=== PATIENT | male | born 1970 | race Caucasian/White ===

== ENCOUNTER 2021-08-27 07:21 | Emergency (ER) | payer SELFPAY ==
[2021-08-27 07:23] VITALS: BP 128/86; PULSE 102; RESP 18; TEMP 36.5; O2SAT 96; BMI 29.0
--- NOTE | 2021-08-27 07:36 | EDS_ITS ---
HPI History of Present Illness Chief Complaint: Wound Detail of Chief Complaint: Rash to feet that started 3 to 4 days ago Informant: patient Narrative Narrative: Patient presents to the emergency department with complaint of an itchy rash that started 3 or 4 days ago. Patient noticed these blisters that he then would pop with a razor blade. The wounds were then scab over. Patient denies any fevers. This morning he felt a little bit hot or sweaty. Patient denies any new soaps or detergents or other allergens. He denies any contact exposures to chemicals. The rash is not present anywhere else on his body. Patient denies recent illness. Patient denies new medications. PFSH PFSH Medical History no medical history Home Medications cephalexin 500 mg capsule 500 mg PO Q6 #40 CAPSULES 08/27/21 [Rx Last Taken Unknown] prednisone 20 mg tablet 20 mg PO BID #14 tabs 08/27/21 [Rx Last Taken Unknown] Allergy/AdvReac Type Severity Reaction Status Date / Time No Known Allergies Allergy Verified 08/27/21 07:23 Family History no significant family his Surgical History no surgical history Social History Smoking Status: Current every day smoker tobacco type: cigarettes ROS ROS ED Review of Systems ROS Unobtainable: other Constitutional Constitutional ED: Reports lethargy; Denies chills, fever(s), sweats or weight loss Eyes Eyes: Denies blurry vision, change in vision or diplopia ENT ENT ED: Denies rhinorrhea or sore throat Cardiovascular Cardiovascular: Denies chest pain, orthopnea or racing heartbeat Respiratory/Chest Respiratory/Chest: Reports dyspnea and dyspnea on exertion; Denies cough, orthopnea or sputum Gastrointestinal Gastrointestinal: Denies abdominal pain, diarrhea, nausea or vomiting Genitourinary Genitourinary ED: Denies dysuria, hematuria or urinary frequency Musculoskeletal Musculoskeletal: Denies arthralgias, back pain, myalgias or neck pain Integumentary Reports rash; Denies abscess or Abrasions Neurologic Neurologic: Denies headache(s) or weakness Psychiatric Psychiatric: Denies anxiety, depression or suicidal thoughts Endocrine Endocrinology: Denies polydipsia, polyphagia or polyuria Hematologic/Lymphatic Hematologic/Lymphatic: Denies easy bleeding, easy bruising or lymphadenopathy Allergic/Immunologic Allergic/Immunologic ED: Denies mouth swelling, tongue swelling or urticaria EXAM Physical Exam Const Vital Signs: 07/12/22 07:23 Temperature 97.7 F L Temperature Source Temporal Pulse Rate 102 H Respiratory Rate 18 Blood Pressure 128/86 H Blood Pressure Mean 100 Pulse Ox 96 Oxygen Delivery Method Room Air Positive well nourished and well developed General Appearance ED: well developed and NAD HEENT Reports TM's clear and moist mucous membranes normocephalic and atraumatic; Negative for trauma or tenderness Tympanic Membrane ED: Yes TM's clear Eyes PERRL and EOMs intact bilaterally General Eye ED: Negative for pale conjunctiva or scleral icterus Neck no lymphadenopathy, supple and no JVD General: Negative for tenderness Chest Wall inspection of chest normal and palpation of chest normal Chest: Negative for tenderness Resp normal respiratory effort and clear to auscultation bilaterally Effort and Inspection: Negative for respiratory distress or pain with movement Auscultation: Negative for rhonchi, wheezes or diminished lung sounds Cardio regular rate, regular rhythm, S1 normal heart sound, S2 normal heart sound and no murmurs Peripheral Pulses: pulses 2+ throughout GI normal to inspection, nondistended, normoactive bowel sounds, soft to palpation, non-tender, non-distended and no masses Back/Spine no CVA tenderness and no thoracic nor lumbar tenderness Extremity Extremity Narrative: Patient with normal pulses to popliteal, dorsal pedal, and posterior tibial arteries. No rashes noted above the ankle. Patient does have excoriated rash on both feet with some pustules noted sporadically. Different stages of healing of prior pustules/vesicles. General Extremety ED: Negative for edema General Extremity: Negative for edema Neuro oriented x3, CN's II-XII intact bilaterally, no sensory deficits noted and gait normal Sensorium / Orientation: awake, alert, oriented to person, oriented to place and oriented to time Motor Exam: strength 5/5 throughout and strength abnormal Psych mental status grossly normal Skin Skin Narrative: Evaluation of both feet does reveal what appears to be a contact like rash with vesicles and pustules that are in different stages of breaking open and healing. There are some dry areas with scabbing noted involving the toes as well as the tops and bottoms of both feet. MDM MDM MDM Narrative Medical decision making narrative: Inspecting patient's feet he has small areas of vesicles and pustules that ap pear to be a contact type dermatitis with possible secondary infection. Patient will be treated with Keflex as well as prednisone by mouth. He will be given referral to podiatry for follow-up. Patient vies return if fever, worsening pain, increased redness or swelling, or condition should worsen anyway. Discharge Plan Triage Chief Complaint: Wound Other Complaint: Rash ED Provider: Lashay Sprague Dx/Rx/DC Orders Clinical Impression: Contact dermatitis, Cellulitis Instructions: ED Cellulitis, ED Contact Dermatitis Prescriptions: New prednisone 20 mg tablet 20 mg PO BID Qty: 14 0RF cephalexin [cephalexin] 500 MG capsule 500 mg PO Q6 Qty: 40 0RF Primary Care Provider: Care Physician,Trina Primary Referrals: Nathan Nix DPM [STAFF PHYSICIAN] - 3-5 Days NOT,DEFINED [NON-STAFF] - Disposition Disposition: Home, Self Care
[2021-08-27] MEDS: predniSONE 20 MG Tablet 40 MG PO (07:41)
[2021-08-27] MEDS: Cephalexin 250 MG Capsule 500 MG PO (07:41)
== END 2021-08-27 07:59 | disposition home or self-care (01) ==
PROVIDERS: Emergency Provider Emergency Medicine; Visit Provider Emergency Medicine
DX: L25.9 Unspecified contact dermatitis, unspecified cause (principal); F17.210 Nicotine dependence, cigarettes, uncomplicated; L03.90 Cellulitis, unspecified
CPT/HCPCS: 99284

== ENCOUNTER → 2021-12-24 | Outpatient (CLI) | payer SELFPAY ==
--- NOTE | 2021-12-24 08:49 | RAD_ITS ---
STUDY: X-RAY - PELVIS AND BILATERAL HIPS REASON FOR EXAM: Male, 51 years old. HIP PAIN TECHNIQUE: AP view of the pelvis.? 2 views of the right hip, and 2 views of the left hip were obtained. COMPARISON: None. FINDINGS: There is a non-specific bowel gas pattern. There are multiple calcified phleboliths. Findings suggestive of a calcified appendicolith measuring 6.7 mm. Normal bilateral iliac wings, sacroiliac joints and visualized sacrum. Normal bilateral superior and inferior pubic rami. Normal pubic symphysis. Normal bilateral ischial tuberosities. Normal visualized right femoral head. Normal right acetabulum. There is mild articular joint space narrowing of the right hip. Normal visualized left femoral head. Normal left acetabulum. There is mild articular joint space narrowing of the left hip. RAD/Hips B/L min 2 views w/ Pelvis IMPRESSION: Mild degree of joint space narrowing of both hip joints. Findings suggestive of a calcified appendicolith measuring 6.7 mm. Electronically Signed: Robert Ruiz MD at 15:35 EST ,
--- NOTE | 2021-12-24 08:49 | RAD_ITS ---
STUDY: X-RAY - LUMBAR SPINE REASON FOR EXAM: Male, 51 years old. Technologist Notes left hip pain, goes down left leg BACK PAIN TECHNIQUE: XR Spine Lumbar Min 4 Views COMPARISON: None FINDINGS: Normal lumbar lordosis. There is no substantial scoliosis. There is a normal alignment of the vertebrae. There is multilevel endplate spondylosis of the lumbar vertebrae. Normal disc space heights. The soft tissue structures are unremarkable. RAD/L/S Spine Min 4 Views IMPRESSION: There is multilevel endplate spondylosis of the lumbar vertebrae. Electronically Signed: Thom Ramos MD at 16:48 EST ,
[2021-12-24 09:24] LABS: Bacteria 0 SEEN /hpf (None Seen); Mucous, Urine 0 SEEN /hpf (<or=2+); Squamous Epithelial Cells - UA 0 SEEN /hpf (0-5); White Blood Cells 0 SEEN /hpf (0-5)
[2021-12-24 10:06] LABS: Absolute Lymphocyte Count 2.62 X10^3/uL (0.83-4.51); Basophil# 0.05 X10^3/uL; Basophil% 0.7 % (0-1); Eosinophils% 2.7 % (0-5); Hematocrit 45.7 % (40-54); Hemoglobin 15.6 g/dL (13.0-16.5); Lymphocyte # 2.62 X10^3/ul (0.83-4.51); Lymphocyte % 35.7 % (19-41); Mean Corp Hgb Conc 34.1 g/dL (32-36); Mean Corpuscular Volume 90.7 fL (80-94); Mean Platelet Vol. 10.8 fl (6.2-12.0); Monocyte# 0.49 X10^3/uL; Monocyte% 6.7 % (0-10); NRBC Flagged by Analyzer 0 % (0-5); Neutrophil # 3.96 X10^3/uL (2.7-7.7); Neutrophil % 53.9 % (47-70); Platelet Count 305 K/mm3 (150-450); RBC Distribution Width CV 13.7 % (11.6-14.6); RBC Distribution Width SD 45.8 fl (35.1-43.9); Red Blood Count 5.04 M/mm3 (4.6-6.2); White Blood Count 7.3 K/mm3 (4.4-11.0)
[2021-12-24 10:09] LABS: Color, Urine Yellow (Yellow); Glucose, Dipstick Normal (Normal); Ketone-Dipstick 5 mg/dl (Negative); Leukocyte Esterase-Dipstick Negative /ul (Negative); Nitrite-Dipstick Negative (Negative); Occult Blood-Urine 25 /ul (Negative); Protein-Dipstick Negative (Negative); Specific Gravity, Urine 1.025 (1.002-1.030); Urine Bilirubin Dipstick Negative (Negative); Urine Clarity Clear (Clear); Urine Urobilinogen Normal (Normal)
[2021-12-24 10:23] LABS: Red Blood Cells-Urine 0-5 SEEN /hpf (0-5)
[2021-12-24 10:24] LABS: ALB/GLOB Ratio 1.1 RATIO (0.9-2.4); AST(SGOT) 8 U/L (15-37); Alanine Aminotransfer ALT/SGPT 20 U/L (16-61); Albumin, Serum 3.9 g/dL (3.2-5.0); Alkaline Phosphatase 62 U/L (45-117); Anion Gap 5 (5-15); BUN 15 mg/dL (7-18); BUN/Creat Ratio 16.1 RATIO (10-20); Calcium,Total 8.8 mg/dL (8.5-10.1); Chloride 112 mmol/L (98-107); Creatinine, Serum 0.93 mg/dL (0.70-1.30); EST Glomerular Filtration Rate 91 mL/min (>60); Est Glom Filt Rate - Afr Amer 110 mL/min (>60); Globulin 3.4 g/dL (2.2-4.2); Glucose 82 mg/dL (74-106); Magnesium 2.3 mg/dL (1.6-2.6); Potassium 4.1 mmol/L (3.5-5.1); Protein, Total 7.3 g/dL (6.4-8.2); Sodium Level 142 mmol/L (136-145)
== END | disposition home or self-care (01) ==
LOC: MTLAB 08:46
PROVIDERS: PCP Family Medicine; Referring Provider Family Medicine; Visit Provider Family Medicine
DX: M54.50 Low back pain, unspecified (principal); G89.29 Other chronic pain; M25.559 Pain in unspecified hip
CPT/HCPCS: 36415; 72110; 73521; 80053; 81001; 83735; 85025

== ENCOUNTER → 2022-04-17 | Outpatient (CLI) | payer SELFPAY | END | disposition home or self-care (01) | PROVIDERS: Referring Provider Nurse Practitioner Family; Visit Provider Nurse Practitioner Family | DX: B35.3 Tinea pedis (principal) | CPT/HCPCS: 87070; 87077; 87186; 87205 ==

== ENCOUNTER → 2022-04-28 | Outpatient (CLI) | payer SELFPAY ==
--- NOTE | 2022-04-28 14:29 | CT_ITS ---
STUDY: LOW DOSE CT LUNG CANCER SCREENING REASON FOR EXAM: Male, 52 years old. One pack per day smoker x35 years RADIATION DOSAGE (If Supplied By Facility): CTDIvol = ( 4.02 ) mGy, DLP = ( 157.03 ) mGycm TECHNIQUE: No contrast was administered. Low dose technique was utilized (average mAS-38 and kVp 120). 1.25 mm axial source images with a slice interval of 1.25-mm were reconstructed in lung windows. 2.5 mm axial source images with a slice interval of 2.5-mm were reconstructed in lung windows. 5.0 mm axial source images with a slice interval of 5.0-mm were reconstructed in soft tissue windows. COMPARISON: None. FINDINGS: Lung windows show underlying emphysema with nonspecific pleural thickening in both apices along with apical bleb formation. There is a suspicious spiculated 1.49 cm right upper lobe nodule with associated pleural thickening that needs further evaluation with PET/CT study. There is a calcified granuloma in the right middle lobe, there is no organized infiltrate, or other suspicious noncalcified mass or nodule. Normal-appearing thyroid gland. Scattered subcentimeter axillary and mediastinal lymph nodes. No pleural or pericardial effusions. No calcified coronary vessels noted. Limited cuts through the upper abdomen do not show a suspicious abnormality. Bony structures show degenerative change CT/Low Dose CT Lung Screening IMPRESSION: Lung-RADS category 4X - Chest CT with or without contrast, PET/CT and/or tissue sampling can be obtained depending on the probability of malignancy and comorbidities. IMPORTANT NOTES FOR USE: ACR Lung-RADS Version 1.1 Assessment Categories Release Date: 2018 Category: Coded 0-4 bases on nodule(s) with highest degree of suspicion. Negative screen is defined as categories 1 and 2; a positive screen is defined as categories 3 and 4. Category 3 and 4A nodules that are unchanged on interval CT should be coded as category 2, and individuals returned to screening in 12 months. Category 4X: Category 3 or 4 nodules with additional imaging findings that increase the suspicion of lung cancer, such as spiculation, GG that doubles in size in 1 year, enlarged lymph notes, etc. Category Modifiers: S (significant finding unrelated to lung cancer) Electronically Signed: Lee Phillips MD at 15:26 EDT ,
--- NOTE | 2022-04-28 14:38 | ART_ITS ---
Reason For Study: Decreased Pedal Pulse Procedure A bilateral lower extremity continuous wave Doppler with analog waveform analysis,segmental pressures,and ankle brachial indexes without exercise. Left Segmental Pressures Left brachial= 133mmHg. Left posterior tibial artery = 175mmHg. Left dorsalis pedis artery = 171mmHg. Left digit = 156 mmHg. The left posterior tibial artery waveforms are triphasic. The left dorsalis pedis waveforms are triphasic. Right Segmental Pressures Right brachial= 137mmHg. Right posterior tibial artery = 172mmHg. Right dorsalis pedis artery = 175mmHg. Right digit = 155 mmHg. The right posterior tibial artery waveforms are triphasic. The right dorsalis pedis waveforms are triphasic. Indices The right ankle brachial index by the posterior tibial artery is 1.26. The right ankle brachial index by the dorsalis pedis is 1.28. The right digital-brachial index is 1.13. The right ankle brachial index by the dorsalis pedis post exercise is 1.28. The left ankle brachial index by the posterior tibial artery is 1.28. The left ankle brachial index by the dorsalis pedis is 1.25. The left digital-brachial index is 1.14. The left posterior tibial artery index post exercise is 1.29. VL/Lower Ext Art Exam w/ Exercise Interpretation Summary Right ARAMNI 1.28, normal. TBI and Doppler/PVR waveforms of the right leg normal a t rest. Right lower extremity exhibits normal response to exercise. Left ARMANI 1.28, normal. TBI and Doppler/PVR waveforms of the left leg normal at rest. Left lower extremity exhibits normal response to exercise. Ordering Physician: Masoud Henderson Referring Physician: Masoud Henderson Performed By: Frederick Bourgeois RVRashid
== END | disposition home or self-care (01) ==
PROVIDERS: PCP Family Medicine; Visit Provider Family Medicine
DX: F17.210 Nicotine dependence, cigarettes, uncomplicated (principal); R09.89 Other specified symptoms and signs involving the circulatory and respiratory systems; Z12.2 Encounter for screening for malignant neoplasm of respiratory organs
CPT/HCPCS: 71271; 93924

== ENCOUNTER → 2022-09-22 | Outpatient (CLI) | payer OTHER, SELFPAY ==
--- NOTE | 2022-09-22 13:31 | CT_ITS ---
EXAM: CT CHEST WITHOUT INTRAVENOUS CONTRAST CLINICAL INDICATION: nodule nodule. Smoker. TECHNIQUE: Helically acquired images were obtained of the chest without intravenous contrast. This CT exam was performed using one or more of the following dose reduction techniques: automated exposure control, adjustment of the mA and/or kV according to patient size, and/or use of iterative reconstruction technique. RADIATION DOSE: CTDIvol = 12.49 mGy, DLP = 493.83 mGy-cm COMPARISON: CT scan chest 04/28/2022. FINDINGS: LUNGS AND PLEURAL SPACES: As seen on axial image 24, there is a 1.5 cm nodular density in the right lung apex surrounded by areas of scarring and possibly representing a confluence of scarring rather than a true lung mass. There is no interval change from the study done 5 months ago. There are paraseptal emphysematous bullae bilaterally which are most prominent in the lung apices. There are also prominent fibrotic changes in his regions bilaterally, right greater than left. There are less prominent centrilobular emphysematous bullae in the lungs bilaterally. As seen on axial image 14, there is a 1.2 cm nodular density in the left lung apex with an area of scarring, and possibly representing a confluence of scarring rather than a true lung nodule. This is also unchanged from the exam done 5 months ago. No pleural effusion or thickening. No pneumothorax. HEART: Unremarkable. Heart size is normal. No pericardial effusion. No significant coronary artery calcifications. MEDIASTINUM: Unremarkable. No mediastinal or hilar adenopathy. Esophagus is unremarkable. No hiatal hernia. THYROID: Unremarkable. No thyroid lesions. BONES/JOINTS: There are multilevel degenerative changes in the visualized spine. No suspicious lytic or blastic abnormality. VASCULATURE: See above. LIVER: There is a calcified granuloma in the right lobe of the liver. CT/Chest without Contrast IMPRESSION: 1.5 cm right apical nodular density and 1.2 cm left apical nodular density, seen within areas of prominent scarring and emphysematous bulla formation. No significant interval change from exam done 5 months ago. Fleischner Society Guidelines for high-risk patients (smoking history or other known risk factors) recommend follow-up chest CT at 15-21 months. If unchanged, no further follow-up. Electronically Signed: Xu Brady MD at 7:51 EDT ,
== END | disposition home or self-care (01) ==
LOC: CT 13:30
PROVIDERS: PCP Family Medicine; Referring Provider Family Medicine; Visit Provider Family Medicine
DX: R91.1 Solitary pulmonary nodule (principal)
CPT/HCPCS: 71250

== ENCOUNTER 2022-10-09 10:30 | Outpatient (RCR) | payer OTHER, SELFPAY ==
[2022-09-25 10:28] VITALS: BP 149/89; PULSE 90; RESP 20; TEMP 36.6; BMI 29.0
--- NOTE | 2022-09-25 11:44 | PCM.WC.HP ---
History of Present Illness Date of Service: 09/25/22 Chief Complaint: Bilateral foot wounds with peeling and redness History of Wound: Patient is a 52-year-old male who is otherwise healthy who presents to the wound care center today for recurring foot wounds. He states the wound started with redness and itching and progressed to blistering and breakdown of the skin with peeling and erythema. He states this for started August 2021 and he has since had 3-4 recurring episodes with his most recent episode starting last week. He did follow-up with the PCP who placed him on oral terbinafine 250 mg for 3 weeks and clotrimazole 1% topical antifungal to be applied daily. Patient states he just started these prescriptions earlier this week and has not noticed any changes yet. Patient denies being diabetic. Patient denies contact skin allergies, change in soap/detergent, wounds anywhere else on his body, denies new medications or prior allergies, he has changed socks and boots after each flareup. States he does not go barefoot at home. States he is unsure of why these wounds/peeling of skin is recurring. Currently denies N/V/F/chills. Denies further complaints. [facility] Home Medications cephalexin 500 mg capsule 500 mg PO Q6 #40 CAPSULES 08/27/21 [Rx Last Taken Unknown] terbinafine HCl 250 mg tablet 250 mg PO DAILY 09/25/22 [History Last Taken Unknown] Allergy/AdvReac Type Severity Reaction Status Date / Time No Known Allergies Allergy Verified 08/27/21 07:23 Social History Smoking Status: Current every day smoker tobacco type: cigarettes ROS Constitutional Constitutional: Denies anorexia, chills, fatigue or fever(s) Eyes Eyes: Denies double vision, dry eyes or erythema ENT HEENT: Denies dysphagia, nasal congestion or sore throat Cardiovascular Cardiovascular: Denies chest pain, claudication or palpitations Respiratory/Chest Respiratory/Chest: Denies cough, shortness of breath at rest or wheezing Gastrointestinal Gastrointestinal: Denies abdominal pain, constipation, diarrhea, nausea or vomiting Genitourinary Genitourinary: Denies dysuria, hematuria, urinary frequency, urinary hesitancy, urinary incontinence or urinary urgency Musculoskeletal Musculoskeletal: Denies joint pain, joint stiffness or joint swelling Integumentary Integumentary: Denies jaundice, lesions or photosensitivity Neurologic Neurologic: Denies dizziness, numbness or seizures Endocrine Endocrinology: Denies cold intolerance or heat intolerance Hematologic/Lymphatic Hematologic/Lymphatic: Denies easy bleeding or easy bruising Vital Signs Vital Signs Vital Signs: 09/25/22 10:28 Temperature 97.8 F Temperature Source Temporal Pulse Rate 90 Respiratory Rate 20 H Blood Pressure 149/89 H Blood Pressure Mean 109 Blood Pressure Source Monitor Weight Weight: 99.798 kg Body Mass Index (BMI) 29.0 Physical Exam Const alert, oriented x3 and no apparent distress General Appearance: cooperative HEENT normocephalic Eyes General Eye: normal appearance of both eyes Neck General: normal visual inspection Lymph Lymphatic: no lymphadenopathy noted and no lymphedema noted Resp normal respiratory effort Cardio regular rate and regular rhythm Extremity normal capillary refill, no joint enlargement, no calf tenderness and no pedal edema Extremity Narrative: DP and PT pulses palpable bilateral. Capillary fill time adequate and brisk to digits bilateral. Dermatological: There is marked erythema of bilateral dorsal foot and ankle secondary to dried, flaking, peeling skin. There are areas of serous drainage and blister sites to dorsal and plantar foot. Peeling skin is noted with maceration between webspaces 1 through 4 bilateral. There is significant epidermal skin loss of the digits, webspaces, sulcus region plantarly, and dorsal foot extending proximally to the ankle bilaterally. No purulence, no malodor, no palpable fluctuance/bogginess, no visible abscess formation. Nails 1 through 5 intact bilateral. Musculoskeletal: Muscle strength 5 of 5 age-appropriate. Full, smooth, pain-free range of motion of the ankle joint, STJ, MTJ, and first MTPJ bilateral. Debridement Note Debridement Note Wound debrided: Right foot Laterality: Right Wound Grade/Stage: Nolasco stage I Type of Debridement: Selective debridement Anesthesia Used: 5% Lidocaine Gel Depth: Down to and including healthy tissue Percentage of wound debrided: 100 Instrument Used: #15 blade and Forceps Tissue Removed: Sloughing epidermal skin Severity: Limited To Skin Breakdown Amount of bleeding with debridement: None Patient tolerated procedure: Patient tolerated procedure well Post-Debridement Measurements and Additional Note: Post-Debridement Measurements/Treatment LULA - Nurse 1 - General Ulcer Assessment Start: 09/25/22 10:28 Freq: Status: Active Protocol: AYAN Activity Type Activity Date Activity User E-sign Co-sign Detail Recorded Client Recorded Date Recorded By Document 09/25/22 10:28 DL [id number] 09/25/22 10:43 DL 09/25/22 10:28 WC - Today's Visit Information Type of service Initial Visit Arrival Mode Ambulatory Transfer Assistance None Patient Identification Verified (Name & Yes ) Patient Requires Transmission-Based No Precautions Height and Weight Height 6 ft 1 in Weight 99.798 kg Weight in Pounds 220.0 lbs Body Mass Index (BMI) 29.0 BMI Classification Overweight BSA - Michael 2.24 Vital Signs Temperature (97.8 F-99.1 F) 97.8 F Temperature Source Temporal Pulse Rate (60-100) 90 Pulse Location Monitor Respiratory Rate (12-18) 20 H Respiratory rate source Observation Blood Pressure (90/60-120/80) 149/89 H Blood Pressure Mean 109 Source Monitor Pain Scale: 0-10 Numeric Is Patient Pain Free? Yes [email or web address] feet -Description Burning -Intensity 3 -Pain Behavior Guarding -Pain Aggravating Factors Walking -Alleviating Factors/Interventions Medication Lower Extremity Assessment/ Foot Assessment/ Toe Nail Assessment Left -Posterior Tibial Palpable No -Posterior Tibial Doppler Multiphasic -Dorsalis Pedis Palpable No -Dorsalis Pedis Doppler Multiphasic -Extremity Color Red -Hair Growth on Legs Yes -Hair Growth on Toes No -Temperature of Extremity Warm -Capillary Refill Less than 3 Seconds -Dependent Rubor No -Blanched when Elevated No -Lipodermatosclerosis No -Other Deformity No -Prior Foot Ulcer No -Charcot Joint No -Prior Amputation No -Thick Yes -Discolored No -Deformed No -Improper Length & Hygeine No Right -Posterior Tibial Palpable No -Posterior Tibial Doppler Multiphasic -Dorsalis Pedis Palpable No -Dorsalis Pedis Doppler Multiphasic -Extremity Color Red -Hair Growth on Legs Yes -Hair Growth on Toes No -Temperature of Extremity Warm -Capillary Refill Less than 3 Seconds -Dependent Rubor No -Blanched when Elevated No -Lipodermatosclerosis No -Other Deformity No -Prior Foot Ulcer No -Charcot Joint No -Prior Amputation No -Thick Yes -Discolored No -Deformed No -Improper Length & Hygeine No Neuropathy Assessment Feet - Top Side and Bottom <Entered> (a) Communication Assessment Preferred language Moroc[place] Able to Read Yes Able to Write Yes Right Hearing Abillity Use of Hearing Aid Left Hearing Abillity Use of Hearing Aid Visual Assistive Devices Glasses Teaching Assessment Preferences Verbal,Written, Demonstration Barriers to Learning None Readiness To Learn Good Willingness to Engage in Self Management Med Activies Readiness to Engage in Self Management Med Activities Anxiety Level Calm Cooperation Cooperative Perception Coherent Interest in Health Problem Asks Questions Education Importance Acknowledges Need Does Patient Smoke tobacco or other No substances Smoking Status Current every day smoker Is Patient Diabetic No Functional Assessment Recent Decline in Ability to Perform Ambulation (a) 1 - + WC - Nurse 1 - General Ulcer Measurement Start: 09/25/22 10:28 Freq: Status: Active Protocol: Activity Type Activity Date Activity User E-sign Co-sign Detail Recorded Client Recorded Date Recorded By Document 09/25/22 10:28 DL [id number] 09/25/22 10:43 DL 09/25/22 10:28 Wound Center Nurse 1 #2 L foot -Combined with (Name of Wound-Exactly .1 as it is documented) -Current Size (cm) - Length 0.1 -Current Size (cm) - Width 0.1 -Current Size (cm) - Depth 0.1 -Total Square Cm 0.01 -Photo Taken Yes -Classification - Thickness Unclassifiable (Eschar Covered ) -Exudate Amt None Present -Wound Margin Indistinct, Non -Visible -Granulation Amt Large (67-100%) -Granulation Quality [place] -Necrosis Amt None Present (0 %) -Structure Exposed N/A -Texture (Beata-wound Skin Appearance) Localized Edema ,Scarring,Rash -Moisture (Beata-wound Skin Appearance) Dry/Scaly -Color (Beata-wound Skin Appearance) Erythema -Temperature (Beata-wound Skin No Abnormality Appearance) (Pt Warm) -Tenderness on Palpation (Beata-wound No Skin Appearance) -Ulcer Cleansing Soap and Water -Foul Odor after Cleansing No #1 R Foot -Current Size (cm) - Length 0.1 -Current Size (cm) - Width 0.1 -Current Size (cm) - Depth 0.1 -Total Square Cm 0.01 -Photo Taken Yes -Classification - Thickness Unclassifiable (Eschar Covered ) -Exudate Amt Small -Exudate Type Serosanguineous -Wound Margin Indistinct, Non -Visible -Granulation Amt Large (67-100%) -Granulation Quality [place] -Necrosis Amt None Present (0 %) -Structure Exposed N/A -Texture (Beata-wound Skin Appearance) Localized Edema ,Scarring,Rash -Moisture (Beata-wound Skin Appearance) Weeping -Color (Beata-wound Skin Appearance) Erythema -Temperature (Beata-wound Skin No Abnormality Appearance) (Pt Warm) -Tenderness on Palpation (Beata-wound No Skin Appearance) -Ulcer Cleansing Soap and Water -Foul Odor after Cleansing No Additional Wound Wound debrided: Left foot Laterality: Left Wound Grade/Stage: Nolasco stage I Type of Debridement: Selective debridement Depth: Down to and including healthy tissue Percentage of wound debrided: 100 Instrument Used: #15 blade and Forceps Tissue Removed: Sloughing epidermal skin Severity: Limited To Skin Breakdown Amount of bleeding with debridement: None Patient tolerated procedure: Patient tolerated procedure well Assessment/Plan Assessment/Plan (1) Tinea pedis: CODE(S): B35.3 - Tinea pedis (2) Non-pressure chronic ulcer of other part of right foot limited to breakdown of skin: CODE(S): L97.511 - Non-pressure chronic ulcer of other part of right foot limited to breakdown of skin (3) Non-pressure chronic ulcer of other part of left foot limited to breakdown of skin: CODE(S): L97.521 - Non-pressure chronic ulcer of other part of left foot limited to breakdown of skin PLAN: Plan Patient seen and evaluated There is marked erythema of bilateral dorsal foot and ankle secondary to dried, flaking, peeling skin. There are areas of serous drainage and blister sites to dorsal and plantar foot. Peeling skin is noted with maceration between webspaces 1 through 4 bilateral. There is significant epidermal skin loss of the digits, webspaces, sulcus region plantarly, and dorsal foot extending proximally to the ankle bilaterally. No purulence, no malodor, no palpable fluctuance/bogginess, no visible abscess formation. Right and left foot underwent debridement as noted in the clinical panel above. Discussed history with patient today and previous flareups/repeat breakdown of skin. 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 He states that he does not frequently change boots after each flaring episode. He also states he has frequently changed socks rotates boots to allow them to fully dry if feet do sweat. Denies changes of detergents, skin allergies, new medications, or changes to new clothing materials. States that only his feet have been affected. States recurrence of over the last year. Has seen PCP who prescribed 21-day course of oral terbinafine 250 mg and 1% clotrimazole topical antifungal. I discussed with him to continue to take the oral antifungal course of the terbinafine. Discussed with him that the 1% clotrimazole topical antifungal is not a strong enough agent for potential tinea pedis. Rx: Ketoconazole 2% topical antifungal to be applied twice a day. He will begin this medication and discontinue previous clotrimazole. 2 refills given on 90 g tube. Discussed with him we will continue to monitor a likely recurring tinea pedis infection however autoimmune condition cannot be ruled out and may and warrant further workup pending response to treatment. He is in agreement with this today. The following work up and care recommendations were made: Dressing: None Wash: Soap and water Tissue growth optimization: None Edema: None Infection: Likely tinea pedis infection bilateral foot. Currently taking oral terbinafine 250 mg p.o. daily x 21 days and will begin ketoconazole 2% topical antifungal to be applied twice a day. Pain: May take [id number] Tylenol for pain Host factors: Chronic tinea pedis I answered all the patient's questions. To return to the wound healing center in 2 weeks or call sooner if the patient has any questions or concerns.
[2022-10-09 10:25] VITALS: BP 142/88; PULSE 89; RESP 16; TEMP 36.2; BMI 29.0
--- NOTE | 2022-10-09 11:45 | PCM.WC.PN ---
History of Present Illness Date of Service: 10/09/22 Chief Complaint: Bilateral foot wounds with peeling and redness History of Wound: Patient is a 52-year-old male who is otherwise healthy who presents to the wound care center today for recurring foot wounds. He states the wound started with redness and itching and progressed to blistering and breakdown of the skin with peeling and erythema. He states this for started August 2021 and he has since had 3-4 recurring episodes with his most recent episode starting last week. He did follow-up with the PCP who placed him on oral terbinafine 250 mg for 3 weeks and clotrimazole 1% topical antifungal to be applied daily. Patient states he just started these prescriptions earlier this week and has not noticed any changes yet. Patient denies being diabetic. Patient denies contact skin allergies, change in soap/detergent, wounds anywhere else on his body, denies new medications or prior allergies, he has changed socks and boots after each flareup. States he does not go barefoot at home. States he is unsure of why these wounds/peeling of skin is recurring. Currently denies N/V/F/chills. Denies further complaints. Subjective Subjective Patient is a 52-year-old male who follows to the wound care center today for tinea pedis with chronic breakdown of the skin to bilateral foot extending proximally to the ankle level. Patient has been taking his oral antifungal and applying topical antifungal as instructed. They do note some improvement however he states his skin is already begun breaking down again and is peeling. He states that he did shower prior to appointment removing a significant amount of skin himself today. States feet are still painful to walk on. Denies constitutional symptoms. Denies further complaints. Objective Data Objective Data Vital Signs: Vital Signs Temp Pulse Resp BP 97.1 F L 89 16 142/88 H 10/09/22 10:25 10/09/22 10:25 10/09/22 10:25 10/09/22 10:25 Weight: 99.798 kg Body Mass Index (BMI) 29.0 Physical Exam Const alert, oriented x3 and no apparent distress General Appearance: cooperative HEENT normocephalic Eyes General Eye: normal appearance of both eyes Neck General: normal visual inspection Lymph Lymphatic: no lymphadenopathy noted and no lymphedema noted Resp normal respiratory effort Cardio regular rate and regular rhythm Extremity normal capillary refill, no joint enlargement, no calf tenderness and no pedal edema Extremity Narrative: DP and PT pulses palpable bilateral. Capillary fill time adequate and brisk to digits bilateral. Dermatological: There is marked erythema of bilateral dorsal foot and ankle secondary to dried, flaking, peeling skin. There are areas of serous drainage and blister sites to dorsal and plantar foot. Peeling skin is noted with maceration between webspaces 1 through 4 bilateral. There is significant epidermal skin loss of the digits, webspaces, sulcus region plantarly, and dorsal foot extending proximally to the ankle bilaterally. No purulence, no malodor, no palpable fluctuance/bogginess, no visible abscess formation. Nails 1 through 5 intact bilateral. - There is some improvement noted and erythema Musculoskeletal: Muscle strength 5 of 5 age-appropriate. Full, smooth, pain-free range of motion of the ankle joint, STJ, MTJ, and first MTPJ bilateral. Neuro moves all extremities Debridement Note Debridement Note Wound debrided: Right foot Laterality: Right Wound Grade/Stage: Nolasco stage I Type of Debridement: Excisional debridement Anesthesia Used: 5% Lidocaine Gel Depth: Down to and including healthy tissue Percentage of wound debrided: 100 Instrument Used: #15 blade Tissue Removed: Devitalized tissue and slough Severity: Limited To Skin Breakdown Amount of bleeding with debridement: None Patient tolerated procedure: Patient tolerated procedure well Post-Debridement Measurements and Additional Note: Post-Debridement Measurements/Treatment - Nurse 1 - General Ulcer Assessment Start: 09/25/22 10:28 Freq: Status: Active Protocol: AYAN Activity Type Activity Date Activity User E-sign Co-sign Detail Recorded Client Recorded Date Recorded By Document 09/25/22 10:28 DL [id number] 09/25/22 10:43 DL Document 10/09/22 10:25 DL [id number] 10/09/22 10:26 DL 09/25/22 10/09/22 10:28 10:25 - Today's Visit Information Type of service Initial Visit Follow-up Visit (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 ) Arrival Mode Ambulatory Ambulatory Transfer Assistance None Patient Identification Verified (Name & Yes Yes ) Patient Requires Transmission-Based No No Precautions Height and Weight Height 6 ft 1 in Weight 99.798 kg Weight in Pounds 220.0 lbs Body Mass Index (BMI) 29.0 29.0 BMI Classification Overweight Overweight BSA - Michael 2.24 Vital Signs Temperature (97.8 F-99.1 F) 97.8 F 97.1 F L Temperature Source Temporal Temporal Pulse Rate (60-100) 90 89 Pulse Location Monitor Monitor Respiratory Rate (12-18) 20 H 16 Respiratory rate source Observation Observation Blood Pressure (90/60-120/80) 149/89 H 142/88 H Blood Pressure Mean (mm Hg) 109 106 Source Monitor Monitor Position Semi-Fowlers Blood Pressure Location Left Arm History Since Last Visit- (Skip if this is Patient's initial visit) Have you changed medications since your No last visit? Any new allergies or adverse reactions No Had a fall/change in ADL's that may No increase risk of falls Signs or symptoms of abuse and/or No neglect since last visit Have you been in the hospital since your No last visit? Has dressing in place as prescribed Yes Has compression in place as prescribed N/A Has offloadiing in place as prescribed N/A Experienced any changes in pain level or No management Left Footwear Slipper Right Footwear Slipper Pain Scale: 0-10 Numeric Is Patient Pain Free? Yes Yes nicholas feet -Description Burning -Intensity 3 -Pain Behavior Guarding -Pain Aggravating Factors Walking -Alleviating Factors/Interventions Medication Lower Extremity Assessment/ Foot Assessment/ Toe Nail Assessment Left -Posterior Tibial Palpable No -Posterior Tibial Doppler Multiphasic -Dorsalis Pedis Palpable No -Dorsalis Pedis Doppler Multiphasic -Extremity Color Red -Hair Growth on Legs Yes -Hair Growth on Toes No -Temperature of Extremity Warm -Capillary Refill Less than 3 Seconds -Dependent Rubor No -Blanched when Elevated No -Lipodermatosclerosis No -Other Deformity No -Prior Foot Ulcer No -Charcot Joint No -Prior Amputation No -Thick Yes -Discolored No -Deformed No -Improper Length & Hygeine No Right -Posterior Tibial Palpable No -Posterior Tibial Doppler Multiphasic -Dorsalis Pedis Palpable No -Dorsalis Pedis Doppler Multiphasic -Extremity Color Red -Hair Growth on Legs Yes -Hair Growth on Toes No -Temperature of Extremity Warm -Capillary Refill Less than 3 Seconds -Dependent Rubor No -Blanched when Elevated No -Lipodermatosclerosis No -Other Deformity No -Prior Foot Ulcer No -Charcot Joint No -Prior Amputation No -Thick Yes -Discolored No -Deformed No -Improper Length & Hygeine No Neuropathy Assessment Feet - Top Side and Bottom <Entered> (a) Communication Assessment Preferred language French Able to Read Yes Able to Write Yes Right Hearing Abillity Use of Hearing Aid Left Hearing Abillity Use of Hearing Aid Visual Assistive Devices Glasses Teaching Assessment Preferences Verbal,Written, Demonstration Barriers to Learning None Readiness To Learn Good Willingness to Engage in Self Management Med Activies Readiness to Engage in Self Management Med Activities Anxiety Level Calm Cooperation Cooperative Perception Coherent Interest in Health Problem Asks Questions Education Importance Acknowledges Need Does Patient Smoke tobacco or other No substances Smoking Status Current every day smoker Is Patient Diabetic No Functional Assessment Recent Decline in Ability to Perform Ambulation (a) 1 - + WC - Nurse 1 - General Ulcer Measurement Start: 09/25/22 10:28 Freq: Status: Active Protocol: Activity Type Activity Date Activity User E-sign Co-sign Detail Recorded Client Recorded Date Recorded By Document 09/25/22 10:28 DL [id number] 09/25/22 10:43 DL Document 10/09/22 10:25 DL [id number] 10/09/22 10:26 DL 09/25/22 10/09/22 10:28 10:25 Wound Center Nurse 1 #2 L foot -Combined with (Name of Wound-Exactly .1 as it is documented) -Current Size (cm) - Length 0.1 -Current Size (cm) - Width 0.1 -Current Size (cm) - Depth 0.1 -Total Square Cm 0.01 -Photo Taken Yes -Classification - Thickness Unclassifiable (Eschar Covered ) -Exudate Amt None Present -Wound Margin Indistinct, Non -Visible -Granulation Amt Large (67-100%) -Granulation Quality Great [place] -Necrosis Amt None Present (0 %) -Structure Exposed N/A -Texture (Beata-wound Skin Appearance) Localized Edema ,Scarring,Rash -Moisture (Beata-wound Skin Appearance) Dry/Scaly -Color (Beata-wound Skin Appearance) Erythema -Temperature (Beata-wound Skin No Abnormality Appearance) (Pt Warm) -Tenderness on Palpation (Beata-wound No Skin Appearance) -Ulcer Cleansing Soap and Water -Foul Odor after Cleansing No #1 R Foot -Current Size (cm) - Length 0.1 -Current Size (cm) - Width 0.1 -Current Size (cm) - Depth 0.1 -Total Square Cm 0.01 -Photo Taken Yes -Classification - Thickness Unclassifiable (Eschar Covered ) -Exudate Amt Small -Exudate Type Serosanguineous -Wound Margin Indistinct, Non -Visible -Granulation Amt Large (67-100%) -Granulation Quality Great Notch -Necrosis Amt None Present (0 %) -Structure Exposed N/A -Texture (Beata-wound Skin Appearance) Localized Edema ,Scarring,Rash -Moisture (Beata-wound Skin Appearance) Weeping -Color (Beata-wound Skin Appearance) Erythema -Temperature (Beata-wound Skin No Abnormality Appearance) (Pt Warm) -Tenderness on Palpation (Beata-wound No Skin Appearance) -Ulcer Cleansing Soap and Water -Foul Odor after Cleansing No Lower Limb Edema Present NA WC - Nurse 2 - General Ulcer CM Notes Start: 09/25/22 10:28 Freq: Status: Active Protocol: Activity Type Activity Date Activity User E-sign Co-sign Detail Recorded Client Recorded Date Recorded By Document 09/25/22 12:27 PL [id number] 09/25/22 12:29 PL 09/25/22 12:27 Wound Center Nurse 2 #2 L foot -Time 11:02 -Correct Patient Yes -Correct Side, Site, Position Yes -Correct Procedure Yes -Procedure Performed Yes -Type of Procedure Debridement -Clinical Debridement Epidermis / Dermis -Tissue Removed Epidermis, Dermis -Tunneling No -Undermining/Tunneling No -Circular Undermining No -Wound/Ulcer Outcome Not Healed -Debridement - Open, 1st 20sq cm Yes #1 R Foot -Time 11:02 -Correct Patient Yes -Correct Side, Site, Position Yes -Correct Procedure Yes -Procedure Performed Yes -Type of Procedure Debridement -Clinical Debridement Epidermis / Dermis -Tissue Removed Epidermis -Post Debridement (cm) - Length 5.0 -Post Debridement (cm) - Width 5.0 -Post Debridement (cm) - Depth 0.1 -Total Square (Post) (cm) 25.00 -Area of Debridement (cm) - Length 5.0 -Area of Debridement (cm) - Width 5.0 -Total Square (Area) (cm) 25.00 -Tunneling No -Undermining/Tunneling No -Circular Undermining No -Wound/Ulcer Outcome Not Healed -Ulcer Cleansing Rinsed/ Irrigated with Saline -Foul Odor after Cleansing No -Bioengineered Tissue No -Debridement - Open, 1st 20sq cm Yes -Debridement, Open, ea addt'l 20sq cm 1 or part thereof Pain Scale: 0-10 Numeric Is Patient Pain Free? Yes Additional Wound Wound debrided: Left foot Laterality: Left Wound Grade/Stage: Nolasco stage I Type of Debridement: Excisional debridement Anesthesia Used: 5% Lidocaine Gel Depth: Down to and including healthy tissue Percentage of wound debrided: 100 Instrument Used: #15 blade Tissue Removed: Devitalized tissue and slough Severity: Limited To Skin Breakdown Amount of bleeding with debridement: None Patient tolerated procedure: Patient tolerated procedure well Assessment/Plan Assessment/Plan (1) Tinea pedis: CODE(S): B35.3 - Tinea pedis (2) Non-pressure chronic ulcer of other part of right foot limited to breakdown of skin: CODE(S): L97.511 - Non-pressure chronic ulcer of other part of right foot limited to breakdown of skin (3) Non-pressure chronic ulcer of other part of left foot limited to breakdown of skin: CODE(S): L97.521 - Non-pressure chronic ulcer of other part of left foot limited to breakdown of skin PLAN: Plan Patient seen and evaluated On 09/25/2022: There is marked erythema of bilateral dorsal foot and ankle secondary to dried, flaking, peeling skin. There are areas of serous drainage and blister sites to dorsal and plantar foot. Peeling skin is noted with maceration between webspaces 1 through 4 bilateral. There is significant epidermal skin loss of the digits, webspaces, sulcus region plantarly, and dorsal foot extending proximally to the ankle bilaterally. No purulence, no malodor, no palpable fluctuance/bogginess, no visible abscess formation. Today 10/09/2022: Erythema improving bilateral dorsal foot and ankle with use of topical ketoconazole 2% and oral terbinafine. There is still significant dried, flaking, peeling skin with some areas of blister site to the dorsal and plantar foot. Maceration is improving but there is still significant epidermal skin loss to the digits, webspaces, sulcus region plantarly, plantar foot, and dorsal foot extending approximately to bilateral ankle. No purulence, no malodor, no palpable fluctuance/bogginess, no visible abscess formation. He states that he has already undergone second round of blistering with significant peeling of skin which he was able to remove some skin during shower this morning. He states slight improvement but this is despite his religion use of oral and topical antifungal. Right and left foot underwent debridement as noted in the clinical panel above. Discussed history with patient and previous flareups/repeat breakdown of skin. 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 He states that he does not frequently change boots after each flaring episode. He also states he has frequently changed socks rotates boots to allow them to fully dry if feet do sweat. Denies changes of detergents, skin allergies, new medications, or changes to new clothing materials. States that only his feet have been affected. States recurrence of over the last year. Has seen PCP who prescribed 21-day course of oral terbinafine 250 mg and 1% clotrimazole topical antifungal. I discussed with him to continue to take the oral antifungal course of the terbinafine. Discussed with him that the 1% clotrimazole topical antifungal is not a strong enough agent for potential tinea pedis. Rx: Ketoconazole 2% topical antifungal to be applied twice a day. He will continue this topical antifungal and discontinue previous clotrimazole. 1 refills remains on 90 g tube. Discussed extending terbinafine 250 mg p.o. x14-day. Discussed with him we will continue to monitor a likely recurring tinea pedis infection however despite oral and topical antifungal course minimal improvement has been noted and he has already had experienced another flare with blistering, flaking, and peeling of the skin and thus autoimmune condition cannot be ruled out. A referral to dermatology will be placed to rule out autoimmune disease. The following work up and care recommendations were made: Dressing: None Wash: Soap and water Tissue growth optimization: None Edema: None Infection: Likely tinea pedis infection bilateral foot versus autoimmune disease. Currently finished oral terbinafine 250 mg p.o. daily x 21 days. Terbinafine course extended another 14 days and will continue ketoconazole 2% topical antifungal to be applied twice a day. Pain: May take [id number] Tylenol for pain Host factors: Chronic tinea pedis I answered all the patient's questions. To return to the wound healing center in 2 weeks if unable to get into dermatology or call sooner if the patient has any questions or concerns.
== END 2022-10-16 23:59 | disposition home or self-care (01) ==
LOC: WC 10:30
PROVIDERS: PCP Family Medicine; Referring Provider Nurse Practitioner Family; Visit Provider Student in an Organized Health Care Education/Training Program
DX: L97.521 Non-pressure chronic ulcer of other part of left foot limited to breakdown of skin (principal); L97.511 Non-pressure chronic ulcer of other part of right foot limited to breakdown of skin; F17.210 Nicotine dependence, cigarettes, uncomplicated; G62.9 Polyneuropathy, unspecified; L53.9 Erythematous condition, unspecified; R60.0 Localized edema; B35.3 Tinea pedis
CPT/HCPCS: 11042; 97597; 97598; 99213; G0463

== ENCOUNTER → 2022-10-09 | Outpatient (CLI) | payer OTHER, SELFPAY ==
[2022-10-09 12:37] LABS: Bacteria 0 SEEN /hpf (None Seen); Mucous, Urine 0 SEEN /hpf (<or=2+); Red Blood Cells-Urine 0 SEEN /hpf (0-5); Squamous Epithelial Cells - UA 0 SEEN /hpf (0-5); White Blood Cells 0 SEEN /hpf (0-5)
[2022-10-09 15:20] LABS: Absolute Lymphocyte Count 1.93 X10^3/uL (0.83-4.51); Absolute Neutrophil Count 4.6 X10^3/uL (2.0-7.7); Basophil# 0.04 X10^3/uL; Basophil% 0.5 % (0-1); Eosinophil# 0.13 X10^3/uL; Eosinophils% 1.8 % (0-5); Hematocrit 46.6 % (40-54); Hemoglobin 15.5 g/dL (13.0-16.5); Lymphocyte # 1.93 X10^3/ul (0.83-4.51); Lymphocyte % 26.1 % (19-41); Mean Corp Hgb Conc 33.3 g/dL (32-36); Mean Corpuscular Hgb 31.6 pg (27.0-32.0); Mean Corpuscular Volume 94.9 fL (80-94); Monocyte# 0.64 X10^3/uL; Monocyte% 8.7 % (0-10); NRBC Flagged by Analyzer 0 % (0-5); Neutrophil # 4.63 X10^3/uL (2.7-7.7); Neutrophil % 62.6 % (47-70); Platelet Count 410 K/mm3 (150-450); RBC Distribution Width CV 14.9 % (11.6-14.6); RBC Distribution Width SD 50.8 fl (35.1-43.9); Red Blood Count 4.91 M/mm3 (4.6-6.2); White Blood Count 7.4 K/mm3 (4.4-11.0)
[2022-10-09 15:35] LABS: Color, Urine Yellow (Yellow); Glucose, Dipstick Normal (Normal); Ketone-Dipstick Negative (Negative); Leukocyte Esterase-Dipstick Negative /ul (Negative); Nitrite-Dipstick Negative (Negative); Occult Blood-Urine Negative /ul (Negative); Protein-Dipstick Negative (Negative); Specific Gravity, Urine 1.005 (1.002-1.030); Urine Bilirubin Dipstick Negative (Negative); Urine Clarity Clear (Clear); Urine Urobilinogen Normal (Normal)
[2022-10-09 15:58] LABS: ALB/GLOB Ratio 1.1 RATIO (0.9-2.4); AST(SGOT) 21 U/L (15-37); Alanine Aminotransfer ALT/SGPT 42 U/L (16-61); Albumin, Serum 3.9 g/dL (3.2-5.0); Alkaline Phosphatase 85 U/L (45-117); Anion Gap 7 (5-15); BUN 12 mg/dL (7-18); BUN/Creat Ratio 11.9 RATIO (10-20); Chloride 106 mmol/L (98-107); Cholesterol 182 mg/dL (200); Creatinine, Serum 1.01 mg/dL (0.70-1.30); EST Glomerular Filtration Rate 83 mL/min (>60); Est Glom Filt Rate - Afr Amer 100 mL/min (>60); Globulin 3.7 g/dL (2.2-4.2); Glucose 90 mg/dL (74-106); High Density Lipoprotein 36 mg/dL; Potassium 4.1 mmol/L (3.5-5.1); Protein, Total 7.6 g/dL (6.4-8.2); Sodium Level 140 mmol/L (136-145); Thyroid Stim Hormone (TSH) 3.94 uIU/mL (0.358-3.74); Triglycerides 186 mg/dL; Very Low Density Lipoprotein 37 mg/dL (5-40)
[2022-10-10 11:40] LABS: T4 Free Direct 1.04 ng/dL (0.76-1.46)
== END | disposition home or self-care (01) ==
PROVIDERS: PCP Family Medicine; Referring Provider Family Medicine; Visit Provider Family Medicine
DX: R79.89 Other specified abnormal findings of blood chemistry (principal); I10 Essential (primary) hypertension
CPT/HCPCS: 36415; 80053; 80061; 81001; 84432; 84439; 84443; 85025; 86376; 86800

== ENCOUNTER 2022-10-15 07:29 | Emergency (ER) | payer OTHER, SELFPAY ==
[2022-10-15 07:30] VITALS: BP 132/75; PULSE 64; RESP 14; TEMP 36.4; O2SAT 98; BMI 29.0
--- NOTE | 2022-10-15 07:45 | EDS_ITS ---
HPI History of Present Illness Chief Complaint: Lower Extremity Injury Informant: patient Narrative Narrative: Patient presents secondary to skin sloughing from his feet. He has had recurring episodes of infection to his bilateral feet. This particular episode has been ongoing for the past 3 weeks. He states he was noticing some improvement but now things are worsened again and is back to skin sloughing from both feet and ankles. He has been following with the wound care center. He is currently on terbinafine as well as ketoconazole topical cream. [facility] Medical History (Updated 10/15/22 @ 08:[address] Leida Trivedi MD) HTN (hypertension) Home Medications cephalexin 500 mg capsule 500 mg PO Q8H 14 days #42 caps 10/15/22 [Rx Last Taken Unknown] hydrochlorothiazide 12.5 mg tablet mg PO DAILY 10/15/22 [History Last Taken 10/14/22] Allergy/AdvReac Type Severity Reaction Status Date / Time No Known Allergies Allergy Verified 10/15/22 07:30 Social History Smoking Status: Current every day smoker tobacco type: cigarettes ROS ROS ED Constitutional Constitutional ED: Denies chills or fever(s) Eyes Eyes: Denies discharge from eye(s) ENT ENT ED: Denies discharge from eye(s), rhinorrhea or sore throat Cardiovascular Cardiovascular: Denies chest pain or palpitations Respiratory/Chest Respiratory/Chest: Denies cough or dyspnea Gastrointestinal Gastrointestinal: Denies abdominal pain, nausea or vomiting Genitourinary Genitourinary ED: Denies dysuria Musculoskeletal Musculoskeletal: Reports extremity pain; Denies back pain Integumentary Reports other Details: Skin sloughing from feet ; Denies Abrasions or rash Neurologic Neurologic: Denies headache(s) or weakness Psychiatric Psychiatric: Denies anxiety or depression Allergic/Immunologic Allergic/Immunologic ED: Denies lip swelling or urticaria EXAM Physical Exam Const Vital Signs: 10/15/22 07:30 10/15/22 08:35 Temperature 97.6 F L 97.6 F L Temperature Source Temporal Temporal Pulse Rate 64 64 Respiratory Rate 14 14 Blood Pressure 132/75 H 132/75 H Blood Pressure Mean 94 94 Pulse Ox 98 98 Oxygen Delivery Method Room Air Room Air Positive well nourished and well developed General Appearance ED: well developed HEENT Reports normocephalic and head/scalp atraumatic Eyes PERRL and EOMs intact bilaterally Neck supple Chest Wall inspection of chest normal and palpation of chest normal Resp normal respiratory effort and clear to auscultation bilaterally Cardio regular rate and regular rhythm GI normal to inspection, nondistended, normoactive bowel sounds Palpation: soft Extremity Extremity Narrative: Bilateral feet and ankles are erythematous with skin sloughing. No lymphangitic streaking noted at this time. Strong pulses at the ankles. Neuro oriented x3 and no sensory deficits noted Sensorium / Orientation: alert Motor Exam: strength 5/5 throughout Psych mental status grossly normal MDM MDM MDM Narrative Medical decision making narrative: Labwork obtained to evaluate for leukocytosis, anemia, and electrolyte derangement. X-rays of the bilateral feet obtained to evaluate for any gas in the soft tissues. Lab Data Attestation: I reviewed the patient's lab results. Labs: Laboratory Results - last 24 hr 10/15/22 08:00 WBC 12.3 H RBC 5.00 Hgb 16.0 Hct 46.6 MCV 93.2 MCH 32.0 MCHC 34.3 RDW Std Deviation 49.3 H RDW Coeff of Zeb 14.6 Plt Count 414 MPV 10.2 Immature Gran % (Auto) 0.500 Neut % (Auto) 75.4 H Lymph % (Auto) 13.8 L [place] % (Auto) 7.4 Eos % (Auto) 2.4 Baso % (Auto) 0.5 Absolute Neuts (auto) 9.3 H Absolute Lymphs (auto) 1.70 Nucleated RBC % 0 ESR 9 Sodium 136 Potassium 3.7 Chloride 103 Carbon Dioxide 27.0 Anion Gap 6 BUN 20 H Creatinine 1.18 Estim Creat Clear Calc 83.70 Est GFR (MDRD) Af Amer 84 Est GFR (MDRD) Non-Af 69 BUN/Creatinine Ratio 16.9 Glucose 129 H Calcium 9.0 C-React Prot Ext Range 19.80 H Radiography Diagnostic Testing: Clinical Impression(s) from Imaging Studies Foot X-Ray 10/15/22 08:15 IMPRESSION: Mild soft tissue swelling of the right foot without acute osseous abnormality identified. Electronically Signed: Patria Bolaños MD at 8:27 EDT , Foot X-Ray 10/15/22 08:15 IMPRESSION: No acute osseous abnormality identified in the left foot. Electronically Signed: Patria Bolaños MD at 8:28 EDT , Treatment and Re-Evaluation :: CBC reveals an elevated white count of 12.3 with 75% neutrophils. This is a change when compared to labs from last week. Chemistry studies are unremarkable. CRP is elevated at 19.8 but sed rate is normal at 9. Foot x-rays are reviewed by myself. No bony abnormality noted. I do not appreciate any gas in the soft tissue. Radiology interpretation is reviewed and agrees. I spoke with Dr. Hemphill, on-call for podiatry. He would like the patient started on Keflex 3 times daily for 2 weeks. Bulky dressings will be applied. Patient can follow-up with either Dr. Hemphill or Dr. Alejo. Discharge Plan Triage Chief Complaint: Lower Extremity Injury ED Provider: Leida Trivedi Dx/Rx/DC Orders Clinical Impression: Tinea pedis, Cellulitis Instructions: ED Cellulitis, ED Athlete's Foot Prescriptions: New cephalexin 500 mg capsule 500 mg PO Q8H 14 Days Qty: 42 0RF No Action hydrochlorothiazide 12.5 mg tablet PO DAILY Primary Care Provider: Masoud Henderson Referrals: Shaun Hemphill DPM [Med Staff - Active Staff] - 3-5 Days Masoud Henderson MD [Primary Care Provider] - Disposition Disposition: Home, Self Care
[2022-10-15 08:09] LABS: Erythrocyte Sedimentation Rate 9 mm/hr (0-20)
[2022-10-15] MEDS: 0.9% Normal Saline 1,000 ML 150 ML IV (08:10)
[2022-10-15 08:11] LABS: Absolute Neutrophil Count 9.3 X10^3/uL (2.0-7.7); Basophil# 0.06 X10^3/uL; Basophil% 0.5 % (0-1); Eosinophils% 2.4 % (0-5); Hematocrit 46.6 % (40-54); Lymphocyte % 13.8 % (19-41); Mean Corp Hgb Conc 34.3 g/dL (32-36); Mean Corpuscular Volume 93.2 fL (80-94); Mean Platelet Vol. 10.2 fl (6.2-12.0); Monocyte# 0.91 X10^3/uL; Monocyte% 7.4 % (0-10); NRBC Flagged by Analyzer 0 % (0-5); Neutrophil % 75.4 % (47-70); Platelet Count 414 K/mm3 (150-450); RBC Distribution Width CV 14.6 % (11.6-14.6); RBC Distribution Width SD 49.3 fl (35.1-43.9); White Blood Count 12.3 K/mm3 (4.4-11.0)
--- NOTE | 2022-10-15 08:15 | RAD_ITS ---
HISTORY: PAIN/INFECTION. TECHNIQUE: XR Foot Min 3 Views. COMPARISON: None. FINDINGS: BONES : No acute fracture identified. Mineralization unremarkable. JOINTS: No dislocation. Joint spaces maintained. SOFT TISSUES: No radiopaque foreign body identified. RAD/Foot min 3 Views IMPRESSION: No acute osseous abnormality identified in the left foot. Electronically Signed: Patria Bolaños MD at 8:28 EDT ,
--- NOTE | 2022-10-15 08:15 | RAD_ITS ---
HISTORY: infection. TECHNIQUE: XR Foot Min 3 Views. COMPARISON: None. FINDINGS: BONES : No acute fracture identified. Mineralization unremarkable. JOINTS: No dislocation. Joint spaces maintained. SOFT TISSUES: Mild dorsal soft tissue swelling. RAD/Foot min 3 Views IMPRESSION: Mild soft tissue swelling of the right foot without acute osseous abnormality identified. Electronically Signed: Patria Bolaños MD at 8:27 EDT ,
[2022-10-15 08:23] LABS: Anion Gap 6 (5-15); BUN 20 mg/dL (7-18); BUN/Creat Ratio 16.9 RATIO (10-20); Chloride 103 mmol/L (98-107); Creatinine, Serum 1.18 mg/dL (0.70-1.30); EST Glomerular Filtration Rate 69 mL/min (>60); Est Glom Filt Rate - Afr Amer 84 mL/min (>60); Glucose 129 mg/dL (74-106); Potassium 3.7 mmol/L (3.5-5.1); Sodium Level 136 mmol/L (136-145)
[2022-10-15 08:35] VITALS: BP 132/75; PULSE 64; RESP 14; TEMP 36.4; O2SAT 98
[2022-10-15] MEDS: Cephalexin 250 MG Capsule 500 MG PO (09:06)
== END 2022-10-15 09:13 | disposition home or self-care (01) ==
PROVIDERS: Emergency Provider Emergency Medicine; PCP Family Medicine; Visit Provider Emergency Medicine
DX: B35.3 Tinea pedis (principal); F17.210 Nicotine dependence, cigarettes, uncomplicated; I10 Essential (primary) hypertension; Z79.899 Other long term (current) drug therapy; L03.115 Cellulitis of right lower limb; L03.116 Cellulitis of left lower limb
CPT/HCPCS: 73630; 80048; 85025; 85652; 86140; 96360; 96361; 99283; J7030; A4216

== ENCOUNTER → 2022-10-21 | Outpatient (CLI) | payer OTHER, SELFPAY | END | disposition home or self-care (01) | PROVIDERS: PCP Family Medicine; Visit Provider Podiatrist Foot & Ankle Surgery | DX: L97.529 Non-pressure chronic ulcer of other part of left foot with unspecified severity (principal); L97.519 Non-pressure chronic ulcer of other part of right foot with unspecified severity | CPT/HCPCS: 87070; 87075; 87077; 87186; 87205 ==

== ENCOUNTER → 2024-12-28 | Outpatient (CLI) | payer OTHER, SELFPAY ==
[2024-12-28 10:04] LABS: Mucous, Urine 0 SEEN /hpf (<or=2+); Red Blood Cells-Urine 0 SEEN /hpf (0-5); Squamous Epithelial Cells - UA 0 SEEN /hpf (0-5)
[2024-12-28 12:25] LABS: Hematocrit 45.0 % (40-54); Hemoglobin 15.9 g/dL (13.0-16.5); Immature Granulocytes Count 0.010 X10^3/uL (0.0-0.0); Mean Corp Hgb Conc 35.3 g/dL (32-36); Mean Corpuscular Volume 90.4 fL (80-94); Mean Platelet Vol. 11.0 fl (6.2-12.0); NRBC Flagged by Analyzer 0 % (0-5); Platelet Count 290 K/mm3 (150-450); RBC Distribution Width CV 13.4 % (11.6-14.6); RBC Distribution Width SD 44.2 fl (35.1-43.9); Red Blood Count 4.98 M/mm3 (4.6-6.2); White Blood Count 8.7 K/mm3 (4.4-11.0)
[2024-12-28 12:29] LABS: Color, Urine Yellow (Yellow); Glucose, Dipstick Normal (Normal); Ketone-Dipstick Negative (Negative); Leukocyte Esterase-Dipstick Negative /ul (Negative); Nitrite-Dipstick Negative (Negative); Occult Blood-Urine Negative /ul (Negative); Protein-Dipstick 15 mg/dl (Negative); Specific Gravity, Urine 1.010 (1.002-1.030); Urine Bilirubin Dipstick Negative (Negative)
[2024-12-28 13:01] LABS: AST(SGOT) 21 U/L (<=37); Alanine Aminotransfer ALT/SGPT 25 U/L (<=46); Albumin, Serum 4.5 g/dL (3.5-5.0); Alkaline Phosphatase 73 U/L (40-129); Anion Gap 13 (5-15); BUN 10 mg/dL (4-19); BUN/Creat Ratio 10.3 RATIO (10-20); Calcium,Total 9.4 mg/dL (7.6-11.0); Carbon Dioxide 23.5 mmol/L (21.0-32.0); Chloride 104 mmol/L (98-108); Cholesterol 201 mg/dL (<=200); Globulin 2.8 g/dL (2.2-4.2); Glucose 93 mg/dL (70-99); Low Density Lipoprotein Calc. 114 mg/dL; Magnesium 2.1 mg/dL (1.5-2.2); Potassium 4.2 mmol/L (3.3-5.1); Triglycerides 262 mg/dL; Very Low Density Lipoprotein 52 mg/dL (5-40); cholesterol:hdl ratio screen 4.80
== END | disposition home or self-care (01) ==
LOC: MTLAB 09:44
PROVIDERS: PCP Family Medicine; Referring Provider Family Medicine; Visit Provider Family Medicine
DX: R73.01 Impaired fasting glucose (principal); I10 Essential (primary) hypertension
CPT/HCPCS: 36415; 80053; 80061; 81001; 83036; 83735; 85025